=== PATIENT | male | born 2000 | race Caucasian/White ===

== ENCOUNTER 2021-06-21 15:43 | Emergency (ER) | payer OTHER ==
[2021-06-21 15:59] VITALS: BP 125/67; PULSE 60; TEMP 97.9; BMI 25.1
[2021-06-21] MEDS ORDERED: IBUPROFEN 600 MG TABLET (FP) PO ONE ×2 (17:30→18:05)
== END 2021-06-21 18:55 | disposition left against medical advice (07) ==
LOC: FER 15:43
DX: M54.2 Cervicalgia (principal); V89.9XXA Person injured in unspecified vehicle accident, initial encounter; Y92.9 Unspecified place or not applicable
CPT/HCPCS: 70450-TC; 72125-TC; 99284-25